=== PATIENT | female | born 1975 | race Caucasian/White ===

== ENCOUNTER 2021-05-16 19:50 | Emergency (ER) | payer BC ==
[~2021-05-16] VITALS: Ht 157.5 cm; Wt 84.8 kg
[~2021-05-16 19:50] MED LIST: FLOMAX0.4 MG PO; GABAPENTIN300 MG PO; LISINOPRIL10 MG PO; MACROBID 100 M100 MG PO; NORCO 10-325 T1 EACH PO; NORCO 10MG-325MG1 EA PO
[2021-05-16] MEDS ORDERED: CASIRIVIMAB/IMDEVIMAB 10 ML in SODIUM CHLORIDE 0.9% 100 ML IV ONE (20:15)
== END 2021-05-16 21:15 | disposition home or self-care (01) ==
LOC: ER 19:59
DX: R05 Cough (principal); U07.1 COVID-19; I10 Essential (primary) hypertension; F17.210 Nicotine dependence, cigarettes, uncomplicated
CPT/HCPCS: 99283; J7050; U0002